=== PATIENT | female | born 1965 | race Caucasian/White ===

== ENCOUNTER 2016-06-24 06:20 | Day surgery (SDC) | payer OTHER ==
[2016-06-17 16:55] LABS: HEMATOCRIT 40.7 % (36.0-48.0); HEMOGLOBIN 13.1 g/dL (12.0-16.0)
[2016-06-17 17:21] LABS: BUN (BLOOD UREA NITROGEN) 12 MG/DL (6-23); CALCIUM, SERUM 9.2 MG/DL (8.5-10.4); CHLORIDE, SERUM 105 MMOL/L (96-112); CO2 (CARBON DIOXIDE) 27 MMOL/L (24-34); CREATININE 0.54 MG/DL (0.55-1.02); GFR AFRICAN AMERICAN 125 ML/MIN (>=60); GFR NON AFRICAN AMERICAN 108 ML/MIN (>=60); GLUCOSE, SERUM 77 MG/DL (60-99); SODIUM, SERUM 142 MMOL/L (135-148)
--- NOTE | ~2016-06-24 | OP ---
Record Of Operation [facility] [address] [place]. [address] NAME: ARABELLA ARMSTRONG : 61 STATUS : REG [facility] [place] PAT#: [id number] AGE: 51 ADM/REG DATE : 06/24/16 MR#: [id number] REPORT SERV DATE: 06/24/16 DICTATED BY: ABDULLAHI VITALE DATE: 06/24/16 REPORT STATUS : Draft TRANSCRIBED BY: MODGisela DATE: 06/24/16 DATE OF PROCEDURE: 06/24/2016 PREOPERATIVE DIAGNOSIS: Abdominal wall laxity, tissue excess, and lipodystrophy. POSTOPERATIVE DIAGNOSIS: Abdominal wall laxity, tissue excess, and lipodystrophy. PROCEDURE PERFORMED: Abdominoplasty with liposuction. ANESTHESIA: General estimated blood loss 100 mL. DETAILS OF PROCEDURE: After informed consent was obtained, patient was taken to the operating room, placed in supine position on the OR table. General anesthesia was induced. Endotracheal intubation. The patient's abdomen and surrounding areas were prepped and draped in the usual sterile manner. She had been marked preoperatively. Preop coleman were confirmed. The areas of planned incision, dissection, and liposuction were infiltrated with local anesthetic solution and tumescent solution. Infiltrating 1000 mL of tumescent solution. Then, a low transverse incision was made. Dissection was then carried out with electrocautery, elevating the skin and fatty tissue from the muscle to the umbilical level. The umbilicus was then incised and freed from surrounding tissue preserving umbilical stalk and blood flow. Additional dissection carried out superiorly, then liposuction was performed laterally for contouring of the lateral abdomen and flanks, aspirating 1250 mL. Continued dissection of the flap was then performed to the xiphoid process and costal margin on the other side. The muscles then tightened down the midline using interrupted 0 figure- of-eight Ethibond sutures followed by a #1 running Ethibond suture line, although additional contouring with 0 Ethibond in the epigastric area. Additional undermining was then performed as needed. Hemostasis was assured. 15 round Clint drains were brought out through a separate stab incision, sutured to skin with 2-0 silk. TAP block was then performed using 30 mL of standard pharmaceutical solution per [facility] protocol. Then, she was flexed approximately 30 degrees at the waist. Excess tissue was judged for excision and this was excised sharply and with electrocautery removing 2256.2 g from the right side, 2451.6 g from the left side. Closure was performed in a layered fashion with deep layer of 2-0 V-Loc and skin closure in a layered fashion with 3-0 and 4-0 Monocryl. Umbilicus was then set in standard fashion with 4-0 and 5-0 Monocryl. Sterile dressings were then applied. She was placed in postoperative garments, taken to PACU in stable condition. CC/ASHANTIL Abdullahi Vitale M.D. / [id number] CC: Record Of Operation [address] [address] NAME: ARABELLA ARMSTROGN : 61 STATUS : REG [facility] [place] PAT#: [id number] AGE: 51 ADM/REG DATE : 06/24/16 MR#: [id number] REPORT SERV DATE: 06/24/16 DICTATED BY: ABDULLAHI VITALE DATE: 06/24/16 REPORT STATUS : Draft TRANSCRIBED BY: JOSE RAMON DATE: 06/24/16 Tristan Galindo M.D.
[~2016-06-24 06:20] MED LIST: AZOR1 TA1 PO; BIOCLEANSE; XANAX1 MG PO
== END 2016-06-24 23:59 | disposition home or self-care (01) ==
LOC: MSC 06:20
PROVIDERS: Plastic Surgery
PROC: 0J080ZZ Alteration of Abdomen Subcutaneous Tissue and Fascia, Open Approach (ICD-10-PCS; principal; 2016-06-24 07:45)
DX: Z41.1 Encounter for cosmetic surgery (principal); E88.1 Lipodystrophy, not elsewhere classified; F41.9 Anxiety disorder, unspecified; K21.9 Gastro-esophageal reflux disease without esophagitis; I10 Essential (primary) hypertension; Z79.899 Other long term (current) drug therapy; Z98.890 Other specified postprocedural states; Z90.710 Acquired absence of both cervix and uterus; Z82.49 Family history of ischemic heart disease and other diseases of the circulatory system; Z83.3 Family history of diabetes mellitus; Z88.8 Allergy status to other drugs, medicaments and biological substances; Z88.5 Allergy status to narcotic agent; Z90.89 Acquired absence of other organs
CPT/HCPCS: 80048; 85014; 85018; 93005; A9270-GY; J0690; J2250; J2405; J2710; J2795; J3010